=== PATIENT | female | born 1950 | race Caucasian/White ===

== ENCOUNTER 2018-03-07 08:15 | Inpatient (IN) | payer OTHER ==
[~2018-03-07] VITALS: Ht 160 cm; Wt 102.1 kg
[2018-03-07] MEDS ORDERED: TOPROL XL200 MG PO (09:52)
[2018-03-07] MEDS ORDERED: DIOVAN HCT 3201 EAC1 PO (09:52)
[2018-03-07] MEDS ORDERED: SIMVASTATIN40 MG PO (09:53)
[2018-03-07] MEDS ORDERED: KOMBIGLYZE XR1 EAC1 PO (09:53)
[2018-03-07] MEDS ORDERED: LANTUS SOL100 UNIT/1 (09:54)
[2018-03-17] MEDS ORDERED: DUI500 PO (16:53)
[2018-03-17] MEDS ORDERED: ELIQUIS2.5 MG PO (16:53)
[2018-03-17] MEDS ORDERED: PERCOCET 5-3251 EACH PO (16:53)
== END 2018-03-17 17:47 | DRG 470 ==
LOC: O/R 03-15 06:40 → SURG 03-15 08:15 → SURH 03-15 17:12 → SURG 03-15 21:30 → SURH 03-17 17:47
PROVIDERS: Orthopaedic Surgery
PROC: 0SNC0ZZ Release Right Knee Joint, Open Approach (ICD-10-PCS; 2018-03-15)
PROC: 3E0F7GC Introduction of Other Therapeutic Substance into Respiratory Tract, Via Natural or Artificial Opening (ICD-10-PCS; 2018-03-15)
PROC: 0SRC0JZ Replacement of Right Knee Joint with Synthetic Substitute, Open Approach (ICD-10-PCS; principal; 2018-03-15 21:30)
DX: M17.11 Unilateral primary osteoarthritis, right knee (principal); D62 Acute posthemorrhagic anemia; M22.11 Recurrent subluxation of patella, right knee; M81.0 Age-related osteoporosis without current pathological fracture; I10 Essential (primary) hypertension; E11.9 Type 2 diabetes mellitus without complications; Z79.4 Long term (current) use of insulin; J44.9 Chronic obstructive pulmonary disease, unspecified

== ENCOUNTER 2021-07-23 09:15 | Inpatient (IN) | payer OTHER ==
[~2021-07-23 09:15] MED LIST: DIOVAN HCT 3201 EAC1 PO; DUI500 PO; ELIQUIS2.5 MG PO; KOMBIGLYZE XR1 EAC1 PO; LANTUS SOL100 UNIT/1; PERCOCET 5-3251 EACH PO; SIMVASTATIN40 MG PO; TOPROL XL200 MG PO
[2021-07-23] MEDS ORDERED: [UNRECOGNIZED DRUG - OTHER] PO (10:48)
[2021-07-23] MEDS ORDERED: VALSARTAN-HCTZ1 EAC2 PO (10:49)
[2021-07-23] MEDS ORDERED: LANTUS (10:49)
[2021-07-29] MEDS ORDERED: OZEMPIC1 MG/0.71 (09:30)
[2021-07-29] MEDS ORDERED: SEMGLEE100 UNIT/1 (09:31)
[2021-07-29] MEDS ORDERED: INVOKAMET XR 11 EAC1 (09:31)
[2021-07-29] MEDS ORDERED: VALSARTAN160 MG (09:31)
[2021-07-31] MEDS ORDERED: PERCOCET 5-3251 EACH PO (16:57)
[2021-07-31] MEDS ORDERED: DUI500 PO (16:57)
[2021-07-31] MEDS ORDERED: ELIQUIS2.5 MG PO (16:57)
== END 2021-07-31 19:00 | disposition designated cancer center or children's hospital (05) | DRG 470 ==
LOC: SURH 07-29 05:59 → O/R 07-29 05:59 → SURH 07-29 09:15 → O/R 07-29 13:56 → SURH 07-29 14:50
PROVIDERS: ADMIT Orthopaedic Surgery; ATTEND Orthopaedic Surgery
PROC: 0SRD0J9 Replacement of Left Knee Joint with Synthetic Substitute, Cemented, Open Approach (ICD-10-PCS; principal; 2021-07-29 12:30)
DX: M17.12 Unilateral primary osteoarthritis, left knee (principal); D62 Acute posthemorrhagic anemia; M22.12 Recurrent subluxation of patella, left knee; I10 Essential (primary) hypertension; E66.8 Other obesity; Z20.822 Contact with and (suspected) exposure to COVID-19; E11.9 Type 2 diabetes mellitus without complications; Z79.4 Long term (current) use of insulin

== ENCOUNTER 2024-03-29 20:06 | Emergency (ER) | payer OTHER ==
[~2024-03-29] VITALS: Ht 160 cm; Wt 68.0 kg
[~2024-03-29 20:06] MED LIST changes: +AZOR 5-40 MG T1 EACH; +INVOKAMET XR 11 EAC1; +LANTUS; +MOUNJARO2.5 MG/0.5 SQ; +OZEMPIC1 MG/0.71; +PEPCID AC20 MG PO; +SEMGLEE100 UNIT/1; +VALSARTAN-HCTZ1 EAC2 PO; +VALSARTAN160 MG; +ZOFRAN8 MG PO; +[UNRECOGNIZED DRUG - OTHER] PO
[2024-03-29 21:02] VITALS: BP 123/73; O2SAT 100
[2024-03-29] MEDS ORDERED: ACETAMINOPHEN 500 MG GEL..CAP PO STA (21:56)
[2024-03-29] MEDS ORDERED: KETOROLAC TROMETHAMINE 60 MG VIAL IM STA (21:56)
[2024-03-29] MEDS ORDERED: OxyCODONE HCL/APAP UD (PERCOCET) PO STA (22:49)
== END 2024-03-29 22:55 | disposition home or self-care (01) ==
LOC: ER 20:08
DX: S40.012A Contusion of left shoulder, initial encounter (principal); W18.39XA Other fall on same level, initial encounter; Y93.89 Activity, other specified; Y92.89 Other specified places as the place of occurrence of the external cause; Y99.9 Unspecified external cause status